=== PATIENT | male | born 2000 | race African-American/Black ===

== ENCOUNTER 2021-12-29 16:25 | Emergency (ER) | payer OTHER, SELFPAY ==
[2021-12-29 18:34] VITALS: BP 134/67; PULSE 85; RESP 17; TEMP 37.2; O2SAT 100
--- NOTE | 2021-12-29 18:45 | NUR.NOTE ---
Nursing Note: STREP SWAB OBTAINED IN TRIAGE, RAPID STREP IS NEGATIVE, PT IS WONDERING IF HE HAS MONO.
--- NOTE | 2021-12-29 20:11 | ED.GENADUL_ITS ---
Discharge Plan Disposition Patient Disposition: HOME Condition: Stable Discharge Details Clinical Impression: Acute viral syndrome Primary Care Provider: Unknown,Unknown ED Provider: Jonathon Cuba Home Meds and New Rx's Prescriptions: Continued (DME) insulin pump cartridge Cartridge SUBCUT 0RF Discharge Instructions Instructions: Viral Syndrome (ED) Additional Instructions: Rapid strep negative. Culture and Monospot both pending. Rest, plenty of fluids, [id number] medications such as Tylenol, Motrin, antihistamines, decongestions, antiseptic throat spray, etc. as directed for symptomatic control. Please watch for new or worsening symptoms and return to the ER for any concerns. Otherwise follow-up with your primary care provider sometime later this week or early next week if symptoms are persistent. Medical Decision Making 21-year-old gentleman, type 1 diabetes, reports that his glucose levels have been appropriate, presents to the ER for 3-day history of dry cough, body aches, sore throat, subjective fever. He was seen by urgent care yesterday and had a negative flu and COVID test. He recalls being in contact with someone who had mono and wonders if he has mono. Clinically he appears well, nontoxic, hemodynamically stable, lungs are clear to auscultation. Rapid strep is negative, culture pending. Also obtaining a Monospot. At this time I see no clear indication for chest x-ray or further laboratory values, likely viral syndrome. Discussed the importance of treating with [id number] medication. We will provide a single dose of Tylenol and Motrin now. No concern for DKA at this time. Patient denies ever having had DKA Standard discharge and return precautions were provided. Patient understands, is agreeable to this plan, and has no additional questions or concerns upon discharge. This documentation was generated using [employer] system, please disregard any oddities of phrase or misspellings. Lab Data Lab results reviewed: Yes I reviewed the patient's lab results. Labs: 12/29/21 18:45 Pharynx Group A Streptococcus Culture - Pending HPI General Mode of arrival: ambulatory . Date/Time Provider Initiated Documentation: 12/29/21 17:00 . Limitations to Documentation: no limitations . Information obtained by: patient . History of Present Illness 21 year old M presents to the emergency department with the chief complaint of sore throat, ? mono, described as moderate, with intensity rated at 4. Quality is described as aching, and is localized to the mouth (Throat). Patient reports no radiation. Patient started experiencing this day(s) (3) and it has been constant. improves with No relieving factors improve symptom(s), Eating worsens symptoms . Patient notes cough and fever/chills (Subjective fever). Patient did receive the following treatments prior to arrival, other (Acetaminophen) Related Data Home Medications Medication Instructions Recorded Confirmed insulin pump cartridge 12/29/21 12/29/21 Allergies Allergy/AdvReac Type Severity Reaction Status Date / Time No Known Allergies Allergy Unverified 12/29/21 19:36 General Stated Complaint: Fever BENITO: 4 Review of Systems Constitutional Constitutional: Reports fever(s) and Denies headache(s) ENT Ears, Nose, Mouth, and Throat: Denies headache(s), Denies neck pain and Reports sore throat Cardiovascular Cardiovascular: Denies chest pain and Denies dyspnea Respiratory Respiratory: Reports cough and Denies dyspnea Gastrointestinal Gastrointestinal: Denies abdominal pain, Denies nausea and Denies vomiting Genitourinary Genitourinary: Denies dysuria Musculoskeletal Musculoskeletal: Reports myalgias and Denies neck pain Integumentary/Breasts Skin/Breast: Denies rash Neurologic Neurologic: Denies headache(s) PFSH All Active Problems (Updated 12/29/21 @ 20:18 by KEVIN Parrish) Acute viral syndrome (Acute) Social History Smoking/Tobacco Use Status: Never Smoking risk assessment performed?: Yes Alcohol Intake: never Substance use type: does not use Do you feel safe at home: Yes Do you feel safe in your relationship?: Yes Exam Const General: cooperative, healthy appearing, comfortable and no acute distress Orientation: alert, awake and oriented x3 HENMT Head: normal to inspection, normocephalic and atraumatic Ears: external ears normal, EAC's normal and TM abnormal (Bilateral, mild erythema) General nose exam: external nose normal Face and sinus: normal facial exam Mouth: moist mucous membranes Throat: uvula not midline and posterior oropharynx abnormal erythema (Mild) Eyes General: appearance normal, both eyes and all related structures Conjunctivae: conjunctivae normal Neck Neck: normal visual inspection, full ROM, trachea midline, supple and lymphadenopathy bilateral anterior cervical Resp Effort & Inspection: normal respiratory effort, able to speak in complete sentences and cough Quality of cough: dry Auscultation: clear to auscultation bilaterally Cardio Rate: regular rate Rhythm: regular rhythm GI Palpation: soft and nontender Back/Spine/Pelvis Back: No back tenderness Skin General skin exam: no rashes or lesions noted Neuro General: patient alert, patient awake, moves all extremities and no focal motor deficits Sensory Exam: no sensory deficits noted Psych Appearance: grossly normal Mental Status: mental status grossly normal Course Vital Signs Vital signs: Vital Signs Temperature 37.2 C 12/29/21 18:34 Pulse 85 12/29/21 18:34 Respiratory Rate 17 12/29/21 18:34 Blood Pressure 134/67 12/29/21 18:34 Pulse Oximetry 100 12/29/21 18:34 Temperature 37.2 C 12/29/21 18:34 Temperature Source Oral 12/29/21 18:34 Pulse 85 12/29/21 18:34 Respiratory Rate 17 12/29/21 18:34 Respiratory Effort 12/29/21 19:34 Blood Pressure 134/67 12/29/21 18:34 Pulse Oximetry 100 12/29/21 18:34 Oxygen Delivery Method Room Air 12/29/21 18:34 Oxygen Flow Rate 0 12/29/21 18:34 Pain Level 8 12/29/21 18:34 Comment 12/29/21 18:37 Lab/Test Results Lab/Test Results: 12/29/21 18:45 Pharynx Group A Streptococcus Culture - Pending POC Strep Test-NUBIA(Rapid) Start: 12/29/21 18:53 Freq: .Rapid Strep Test Status: Active Protocol: Document 12/29/21 18:57 (Rec: 12/29/21 18:57 [id number]) Strep test-NUBIA(Rapid)-POC POC-Strep test-[facility]BIA (Rapid) Negative POC-Strep test-NUBIA (Rapid) Negative
[2021-12-29] MEDS: Ibuprofen 800 MG TAB PO (20:32)
[2021-12-29] MEDS: Acetaminophen 500 MG TAB 1000 MG PO (20:32)
== END 2021-12-29 20:35 | disposition home or self-care (01) ==
PROVIDERS: Emergency Provider Physician Assistant
DX: B34.9 Viral infection, unspecified (principal); J02.9 Acute pharyngitis, unspecified; R05.1 Acute cough
CPT/HCPCS: 36415; 86308; 87880; 99282; 87081